=== PATIENT | female | born 1935 | race Caucasian/White ===

== ENCOUNTER 2016-03-09 00:03 | Emergency (ER) | payer MEDICARE, OTHER ==
[~2016-03-09 00:03] MED LIST: ALPR.25T PO; ASCO100089 PO; ASP81TEC PO; ATEN25TA7 PO; CALTRATE 600 +1 EACH PO; CHOL500011 PO; CITA10TA14 PO; CLOP75TA14 PO; DONE10TA5 PO; FISH1CAP15 PO; IMD30 PO; LSNP5T1 PO; MULT-64 PO; NITR0.4T SL; PRV40T PO
[2016-03-09 00:11] VITALS: BP 187/63; PULSE 59; RESP 16; O2SAT 98
--- NOTE | 2016-03-09 00:18 | ED.REPORT ---
HPI-Trauma Minor / Fall Date of Service Mar 09, 2016 ED Provider: Nuris Martinez M.D. Pt is an 80 y.o. female with a hx of dementia who presents to the ED via EMS with left wrist pain and deformity onset prior to arrival. Pt was found by staff at her [facility] after a ground level fall. She reports associated pelvic tenderness and denies chest, back, and abdominal pain. Pt is a poor historian due to her dementia. Nursing Notes Stated Complaint: GLF Chief Complaint: Multiple Trauma/Fall Nursing Notes Reviewed: Yes Allergies: Coded Allergies: memantine (Verified Allergy, Unknown, agitation, 03/09/16) Scheduled Ascorbic Acid-Expunged Drug, Do Not Renew! (Vitamin C-Expunged Drug, Do Not Renew!) 1,000 Mg Tab.chew 1,000 MG PO DAILY Aspirin-Expunged Drug, Do Not Renew! (Aspirin EC-Expunged Drug, Do Not Renew!) 81 Mg Tablet 81 MG PO DAILY Atenolol-Expunged Drug, Do Not Renew! (Atenolol-Expunged Drug, Do Not Renew!) 25 Mg Tablet 25 MG PO AM Calcium Carbonate/Vitamin D3 (Caltrate 600 + D Chewable Tab) 1 Each Tab.chew 1 EACH PO d Cholecalciferol-Expunged Drug, Do Not Renew! (Vitamin D3-Expunged Drug, Do Not Renew!) 5,000 Unit Tablet 5,000 UNIT PO 1/2 tab daily Citalopram-Expunged Drug, Do Not Renew! (Citalopram-Expunged Drug, Do Not Renew! ) 10 Mg Tablet 10 MG PO DAILY Clopidogrel-Expunged Drug, Do Not Renew! (Plavix-Expunged Drug, Do Not Renew!) 75 Mg Tablet 75 MG PO DAILY Donepezil-Expunged Drug, Do Not Renew! (Donepezil-Expunged Drug, Do Not Renew!) 10 Mg Tablet 10 MG PO DAILY Fish Oil/Dha/Epa-Expunged Drug, Do Not Renew! (Fish Oil 1,200 Mg-Expunged Drug, Do Not Renew) 1 Each Capsule 1 EACH PO DAILY Isosorbide [place]-Expunged Drug, Do Not Renew! (LUBFY-OK-Obxnknfq Drug, Do Not Renew!) 30 Mg Tber 30 MG PO AM Lisinopril-Expunged Drug, Do Not Renew! (Lisinopril-Expunged Drug, Do Not Renew! ) 5 Mg Tablet 5 MG PO DAILY Multivitamins-Expunged Drug, Do Not Renew! (Multivitamins-Expunged Drug, Do Not Renew!) 1 Each Tab.chew 1 EACH PO DAILY Nitroglycerin-Expunged Drug, Do Not Renew! (Nitroglycerin SL-Expunged Drug, Do Not Renew!) 0.4 Mg Tab.subl 0.4 MG SL PRN Pravastatin-Expunged Drug, Do Not Renew! (Pravachol-Expunged Drug, Do Not Renew! ) 40 Mg Tablet 40 MG PO DAILY Scheduled PRN Docusate Sodium (Colace) 100 Mg Capsule 100 MG PO BID PRN PRN For Constipation Hydrocodone-Acetaminophen 5-325 mg (Hydrocodone-Acetaminophen 5-325 mg) 1 Each Tablet 1 TABLET PO Q6H PRN PRN For Pain Miscellaneous Medications Alprazolam-Expunged Drug, Do Not Renew! (Alprazolam-Expunged Drug, Do Not Renew! ) 0.25 Mg Tablet 0.25 MG PO General Time Seen by MD: 00:18 Chief Complaint Extremity pain (Left wrist) Hx Obtained From: Patient, EMS Unable to Obtain Hx: Patient condition, Mental status (Dementia) Arrived By: Ambulance Onset Occurred: Just prior to arrival Symptom Duration: Waxes and wanes Caused by: Fall on ground Context: Occurred at: Home injury Location: Wrist left Quality: Painful Severity: Maximum: Severe Past Medical History Past Medical History Dementia CVA HTN Depression Anxiety Past Surgical History None reported Ambulatory Status Independent Review of Systems Pelvis tender Unable to Obtain ROS Patient condition, Mental status (Dementia) Musculoskeletal: Reports: Joint pain (Wrist left), Joint swelling (Wrist left) , Denies: Back pain Complete sys rev & neg: except as marked. Cardiovascular: Denies: Chest pain GI: Denies: Abdominal pain Physical Exam Initial Vital Signs Vital Signs (First) Date Time Temp Pulse Resp B/P Pulse Ox O2 Delivery O2 Flow Rate FiO2 03/09/16 00:11 36.7 59 16 187/63 98 Room Air Initial VS: Reviewed, Vital signs abnormal Head / Eyes: Atraumatic, Normocephalic Respiratory: Breath sounds normal, Clear to auscultation, No respiratory distress Cardiovascular: Regular rate & rhythm, Heart sounds normal, Intact distal pulses Abdomen / GI: Soft, Non-tender, No distention Extremities: Vascular intact, Neuro intact Skin: Warm, Dry, No cyanosis Neurologic: Alert Psychiatric: Mood/affect normal General/Constitutional: Awake, No acute distress, Well appearing, Well developed, Well hydrated, Well nourished Neck: Atraumatic Back: Atraumatic, Inspection NL, Non-tender, No midline vertebral tend Wrist / Hand: Neurologic intact, Vascular intact Left Wrist: Positive: Deformity present..., Swelling present..., Tenderness present... Pt able to move fingers of left hand. Lower Extremity / Pelvis / MS: Neurologic intact, Vascular intact Pelvis tender Interpretation & Diagnostics Lab Results Interpretation Result Diagram: 03/09/16 0205 03/09/16 0205 Test 03/09/16 02:05 White Blood Count 12.9th/mm3 (3.8-10.1) Red Blood Count 4.73mil/mm3 (3.90-5.20) Hemoglobin 13.6g/dL (12.0-15.6) Hematocrit 40.8% (35.0-46.0) Mean Corpuscular Volume 86.3fL (81-100) Mean Corpuscular Hemoglobin 28.8pg (27.0-35.0) Mean Corpuscular Hemoglobin Concent 33.3% (32.0-37.0) Red Cell Distribution Width 13.3% (12.3-15.4) Platelet Count 202bil/L (150-400) Neutrophils (%) (Auto) 87.0% (40-74) Lymphocytes (%) (Auto) 7.9% (14-46) Monocytes (%) (Auto) 4.4% (4-12) Eosinophils (%) (Auto) 0.1% (0-5) Basophils (%) (Auto) 0.1% (0-3) Sodium Level 137mEq/L (134-144) Potassium Level 4.2mEq/L (3.5-5.2) Chloride Level 99mEq/L (97-108) Carbon Dioxide Level 23mmol/L (18-29) Blood Urea Nitrogen 15mg/dL (8-27) Creatinine 0.73mg/dL (0.57-1.00) Estimat Glomerular Filtration Rate 110mL/min (>59) Glucose Level 163mg/dL (60-99) Calcium Level 9.4mg/dL (8.5-10.1) Magnesium Level 2.1mg/dL (1.6-2.6) Hold Marrero Top Tube Received (Received) X-Ray Interpretation Xray Interpretation: IMPRESSION: Distal radial and ulnar fracture, anteriorly displaced. X-Ray Ordered: Wrist left Interpretation / Wet Read by: Wet read ED physician Interpretation: Abnormal exam, Fracture-dislocation Xray Interpretation: IMPRESSION: No fracture visualized X-Ray Ordered: Pelvis Interpretation / Wet Read by: Wet read ED physician Interpretation: Normal exam Procedures Hematoma block attempted at 0120 5cc of Bupivacaine into left wrist, pt was unable to tolerate procedure so it was stopped. Proced Mod Sedation/Analgesia Time: 02:36 Procedure Performed by: ED physician Consent / Setup: Informed consent provided, Consent from patient, Time-out performed, Hand hygiene observed, Stand sterile technique, Position supine Indication: Fracture reduction Preparation: telemetry monitor applied, Pulse oximeter applied, Constant attendance, IV access established, Eval last meal time, Supplemental oxygen, Procedure explained, Suction available, End tidal CO2 mon applied VS Prior to Procedure: All vital signs normal Mallampati: Class & Anatomy: 1 tonsils/uvula/s palate Airway Exam: Normal facial anatomy, Normal neck anatomy, Normal anatomy CVS/Resp Exam: Normal breath sounds, Normal heart sounds Neuro Exam: Alert, No acute distress, Responsive Sedation: Sedation: Propofol (40) ASA Classification: 1 normal healthy patient Response During Procedure: Handled secretions adeq, Maintained airway well, Oxygenation stable, Sedation appropriate, Vital signs stable Complications During/After: None Mental Status After Procedure: At patient's baseline Post-Procedure: Pt rtn pre-proc baseline, Vital signs normal Attestation: I performed sedation Re-Eval/Medical Decision Med Decision/Clinical Course This patient presents with a fall and what appears to be an isolated left wrist injury. She has an obvious deformity, her x-ray confirms a distal radius and ulna fracture was displaced. The patient is comfort measures only and is unable to give consent. I did attempt to contact her son but was unsuccessful. In the spirit of keeping her comfortable and felt as medically necessary to reduce her fracture. Spoke with Dr. Aviles who came in for the reduction and I did the conscious sedation. After reducing his recommendation is that the patient show up early next week preferably on Monday with her family to discuss options. The patient does not appear to have any other injuries she was able to shake her head yes and no for her review of systems. On examination she did appear to have some pelvic discomfort consent was obtained and is negative for fracture. Source of Hx: Old records Consultation : Referral / Consult Name: Jose Aviles DO Call Returned at: 01:36 Note: Discussed pt condition, will see pt in ED to evaluate. Counseled Regarding: Diagnosis, Lab results, Need for follow-up, When/why to return to ED Discharge & Departure Impression: Primary Impression: Radius and ulna distal fracture Encounter type: initial encounter Fracture type: closed Laterality: left Qualified Code: S52.502A - Unspecified fracture of the lower end of left radius , initial encounter for closed fracture Disposition: Home Discharge Condition All VS Reviewed: Yes Condition: Stable Patient Instructions: Splint Care (ED), Wrist Fracture in Adults (ED) Additional Instructions: You fractured your left distal radius and ulna. Start with regular Tylenol, no more than 4g in 1 day, for the pain and use narcotics only as needed. Use Colace with the narcotics. You will need to call Dr. Aviles, orthopedics, tomorrow to schedule an appointment for Monday to discuss options. Stop taking Plavix for the next 4 days. Seek care if you experience numbness or tingling in your left hand, increased pain, or any new or worsening symptoms. Referrals: Emmanuel Geronimo MD (PCP) Jose Aviles DO 5 to 6 Days Scribe Attestation Portions of this note were transcribed by Doris Jacobo. I, Dr. Martinez personally performed the history, physical exam and medical decision-making; I reviewed and confirmed the accuracy of the information in the transcribed note. Signed by: Sherly Nolan, 03/09/2016 and 0301. copies to: Emmanuel Geronimo MD; Jose Aviles Jena M MD Mar 09, 2016 00:18 DORIS JACOBO Mar 09, 2016 00:39
[2016-03-09] MEDS ORDERED: HYDROmorphone 0.5 mg/0.5 mL iSecure Syringe IM ONE (00:30)
[2016-03-09 00:52] VITALS: BP 165/65; PULSE 61; O2SAT 95
[2016-03-09] MEDS ORDERED: HYDROcodone-APAP 5-325 mg Tablet PO ONE (01:00)
[2016-03-09] MEDS ORDERED: Bupivacaine-MPF 0.5% 30 mL Inj ONE (01:29)
[2016-03-09 02:16] LABS: BASOPHILS % (AUTO) 0.1 % (0-3); EOSINOPHILS % (AUTO) 0.1 % (0-5); MONOCYTES % (AUTO) 4.4 % (4-12); Mean Corpuscular Hemoglobin 28.8 pg (27.0-35.0); Mean Corpuscular Volume 86.3 fL (81-100); Platelet Count 202 bil/L (150-400)
[2016-03-09] MEDS ORDERED: 0.9% Sodium Chloride 1,000 ML ONE (02:19)
[2016-03-09] MEDS ORDERED: Propofol 10 mg/mL 20 mL Inj IVPUSH ONE (02:30)
[2016-03-09 02:39] LABS: Magnesium 2.1 mg/dL (1.6-2.6)
[2016-03-09] MEDS ORDERED: HYDR-4003 PO (02:59)
[2016-03-09] MEDS ORDERED: DOCU-41 PO (02:59)
[2016-03-09 03:14] VITALS: BP 159/74; PULSE 69; RESP 14; O2SAT 98
--- NOTE | 2016-03-09 03:31 | CONS ---
[address] [address] CONSULTATION REPORT PATIENT: PRATEEK YUSUF : 1935 MR#: [id number] ADMIT: 03/09/2016 JOB ID: [id number] DATE OF SERVICE: 03/09/2016 CHIEF COMPLAINT: Left wrist injury and deformity. HISTORY OF PRESENT ILLNESS: The patient is a 70-year-old female with severe dementia who lives at [facility] and presumably fell sustaining a left distal radius fracture. She did not have any family or staff members present to witness the fall. She is nonverbal with communication. PAST MEDICAL HISTORY: Significant for Alzheimer's dementia, depression, carotid artery stenosis 70%, hypertension, hyperlipidemia, syncope, and anxiety disorder. PAST SURGICAL HISTORY: Not known. SOCIAL HISTORY: Not known. MEDICATIONS: Include: 1. Plavix 75 mg daily. 2. Citalopram 10 mg daily. 3. Donepezil 10 mg 2 tabs daily. PHYSICAL EXAMINATION: She is alert and cooperative in some distress secondary to her left wrist which has been splinted. She has an obvious dinner fork type deformity. She has a small abrasion over her wrist and some ecchymosis and bruising. The abrasion is on the volar aspect. It does not appear to communicate with the fracture. There is no active bleeding present. She is able to move her fingers, although full neurovascular exam is limited due to patient noncompliance. Her capillary refill is less than 3 seconds. Radial pulse +2. IMAGING: X-rays demonstrate a left distal radius and ulnar fracture with 100% dorsal displacement. ASSESSMENT: Left displaced distal radius and ulnar fractures. PLAN: Discussed treatment options with the patient to the extent that I could as well as the other emergency department physician. We felt it was best that the patient be sedated with conscious sedation and then have a closed reduction performed and then be placed into a sugar-tong splint. We will have her follow up in 1 week for recheck with x-rays in the splint and probable cast treatment, although I can discuss operative treatment with the family members at that time. PROCEDURE: Under conscious sedation a firm, but gentle manipulation was performed extenuating the fracture and then reducing it. The fracture was held by an hospital medical assistant while I applied a well-padded and appropriately molded sugar-tong fiberglass splint. The patient tolerated the procedure well. I took fluoroscopic images which demonstrated satisfactory alignment, and reduction of the fracture. We will have the patient follow back up next Monday with myself with the splint to be removed by myself. I also recommend that she hold the Plavix for 48 hours to prevent undue bleeding at the fracture site.
--- NOTE | 2016-03-09 08:01 | DRSVH ---
PROCEDURE: X-RAY LEFT WRIST COMPLETE, MINIMUM THREE VIEWS ([id number]) INDICATIONS: 80 year-old female with left wrist deformity after fall. TECHNIQUE: 3 views of the wrist were acquired. COMPARISON: None. FINDINGS: Bones: Comminuted fractures involve the distal radial and ulnar metaphyses, with significant dorsal d isplacement and angulation of the distal fracture components. An additional minimally displaced fract ure involves the ulnar styloid tip. Carpal bones remain normally aligned. No suspicious bony lesions. Scaphoid view: Scaphoid appears intact. Soft tissues: No suspicious soft tissue calcifications. IMPRESSION: 1. Significantly displaced and dorsally angulated comminuted fractures of the distal radial and ulnar metaphyses. 2. Additional minimally displaced ulnar styloid tip avulsion fracture. Dictated by: Rich Virgen M.D. on 03/09/2016 at 7:59 Approved by: Rich Virgen M.D. on 03/09/2016 at 7:59
--- NOTE | 2016-03-09 08:02 | DRSVH ---
PROCEDURE: X-RAY PELVIS, ONE OR TWO VIEWS ([id number]) INDICATIONS: 80 year-old female status post fall. TECHNIQUE: One view(s) of the pelvis acquired. COMPARISON: None. FINDINGS: Bones: No fractures or dislocations. No suspicious bony lesions. There is lower lumbar spine facet joint degeneration. Soft tissues: Visualized bowel gas pattern is normal. No suspicious soft tissue calcifications. IMPRESSION: No acute bony injuries of the pelvic ring. Dictated by: Rich Virgen M.D. on 03/09/2016 at 8:00 Approved by: Rich Virgen M.D. on 03/09/2016 at 8:00
[2016-03-09] MEDS ORDERED: ARNI120T TP (23:33)
[2016-03-09] MEDS ORDERED: CALC-1003 PO (23:33)
[2016-03-09] MEDS ORDERED: CRAN1TAB5 PO (23:33)
[2016-03-09] MEDS ORDERED: ASCO1TAB12 PO (23:33)
[2016-03-09] MEDS ORDERED: MELA3TAB54 PO (23:33)
[2016-03-09] MEDS ORDERED: MAGN400O4 PO (23:33)
[2016-03-09] MEDS ORDERED: CHOL10008 PO (23:33)
[2016-03-09] MEDS ORDERED: BISA10SU61 RC (23:33)
[2016-03-09] MEDS ORDERED: LACT460C PO (23:33)
[2016-03-09] MEDS ORDERED: CITA10TA9 PO (23:43)
[2016-03-09] MEDS ORDERED: NITR0.4T SL (23:43)
[2016-03-09] MEDS ORDERED: DONE10TA42 PO (23:43)
[2016-03-09] MEDS ORDERED: CLOP75TA28 PO (23:43)
[2016-03-09] MEDS ORDERED: ATEN25TA PO (23:43)
[2016-03-09] MEDS ORDERED: ASPI81TA3 PO (23:43)
[2016-03-09] MEDS ORDERED: MULT1CAP33 PO (23:43)
== END 2016-03-09 03:26 | disposition home or self-care (01) ==
LOC: EDUNIT# 00:03 → EDBD 00:03 → SED 00:03
DX: S52.592A Other fractures of lower end of left radius, initial encounter for closed fracture (principal); S52.692A Other fracture of lower end of left ulna, initial encounter for closed fracture; R10.2 Pelvic and perineal pain; W18.30XA Fall on same level, unspecified, initial encounter; Y93.89 Activity, other specified; Y92.128 Other place in nursing home as the place of occurrence of the external cause; Y99.8 Other external cause status; I10 Essential (primary) hypertension; Z86.73 Personal history of transient ischemic attack (TIA), and cerebral infarction without residual deficits; Z79.82 Long term (current) use of aspirin; Z88.8 Allergy status to other drugs, medicaments and biological substances

== ENCOUNTER 2016-03-09 20:59 | Observation (INO) | payer MEDICARE, OTHER ==
[~2016-03-09] VITALS: Ht 157.5 cm; Wt 65.1 kg
[~2016-03-09 20:59] MED LIST changes: +DOCU-41 PO; +HYDR-4003 PO
[2016-03-09 21:35] VITALS: BP 171/76; PULSE 60; RESP 18; O2SAT 95
[2016-03-09] MEDS ORDERED: Alum-Mag Hydrox-Simeth 30 mL Suspension PO PRN (22:35)
[2016-03-09] MEDS ORDERED: Ondansetron 2 mg/mL 2 mL Inj IVPUSH PRN (22:35)
[2016-03-09] MEDS ORDERED: HYDROcodone-APAP 5-325 mg Tablet PO PRN (22:35)
[2016-03-09] MEDS ORDERED: Polyethylene Glycol (PEG) 17 Gm Powder PO PRN (22:35)
[2016-03-09] MEDS ORDERED: BISA10SU61 RC (23:33)
[2016-03-09] MEDS ORDERED: MELA3TAB54 PO (23:33)
[2016-03-09] MEDS ORDERED: MAGN400O4 PO (23:33)
[2016-03-09] MEDS ORDERED: CRAN1TAB5 PO (23:33)
[2016-03-09] MEDS ORDERED: ARNI120T TP (23:33)
[2016-03-09] MEDS ORDERED: LACT460C PO (23:33)
[2016-03-09] MEDS ORDERED: CALC-1003 PO (23:33)
[2016-03-09] MEDS ORDERED: CHOL10008 PO (23:33)
[2016-03-09] MEDS ORDERED: ASCO1TAB12 PO (23:33)
[2016-03-09] MEDS ORDERED: NITR0.4T SL (23:43)
[2016-03-09] MEDS ORDERED: CITA10TA9 PO (23:43)
[2016-03-09] MEDS ORDERED: MULT1CAP33 PO (23:43)
[2016-03-09] MEDS ORDERED: DONE10TA42 PO (23:43)
[2016-03-09] MEDS ORDERED: CLOP75TA28 PO (23:43)
[2016-03-09] MEDS ORDERED: ATEN25TA PO (23:43)
[2016-03-09] MEDS ORDERED: ASPI81TA3 PO (23:43)
[2016-03-10] MEDS ORDERED: Magnesium Hydroxide 355 mL Oral Suspension PO PRN (00:15)
[2016-03-10 00:55] VITALS: BP 185/73; PULSE 63; RESP 18; O2SAT 95
[2016-03-10] MEDS ORDERED: hydrALAZINE 20 mg/mL Inj IV ONE (02:15)
[2016-03-10 03:32] LABS: BASOPHILS % (AUTO) 0.1 % (0-3); MONOCYTES % (AUTO) 10.5 % (4-12); Mean Corpuscular Hemoglobin 28.8 pg (27.0-35.0); Mean Corpuscular Volume 87.1 fL (81-100); NEUTROPHILS % (AUTO) 57.1 % (40-74); Platelet Count 193 bil/L (150-400)
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
[2016-03-10 05:20] VITALS: BP 147/68; PULSE 74; RESP 18; O2SAT 94
--- NOTE | 2016-03-10 07:37 | NUR ---
Admission note Pt arrived from Urgent care directly to [facility] # [id number] approx at 2114 accompanied by her son. Pt is confused due to advanced dementia r/t Alzheimers disease. Admission assessment and screening complicated with help from her son. Pt was hypertensive. Dr. Rubalcava notified. Received order to establish IV access on foot due to limitation on bilateral arms. Both arms in splint due fx. No overt complications noted.
[2016-03-10 15:01] VITALS: BP 139/81; PULSE 66; RESP 19; O2SAT 93
--- NOTE | 2016-03-10 15:25 | PCM.CONORT ---
Subjective Surgeon Admitting Provider:Kip Varela MD Attending Provider:Kip Varela MD Primary Care Physician:Emmanuel Geronimo MD Other Provider: Reason for Consultation: Right wrist pain Allergy Allergies: Coded Allergies: memantine (Verified Allergy, Unknown, agitation, 03/09/16) Medications Arnica (Arnica) 120 Ml Tincture 120 ML TP DAILY PRN PRN Bruise left ear ( Reported) Ascorbate Calcium/Bioflavonoid (Dominique-C 500 mg Tablet) 1 Each Tablet 1 EACH PO DAILY (Reported) Last Taken: Unknown Dose on 03/09/16 0800 Aspirin Chew (Aspirin Chew) 81 Mg Chew 81 MG PO DAILY (Reported) Last Taken: Unknown Dose on 03/09/16 0800 Atenolol (Atenolol) 25 Mg Tablet 25 MG PO (Reported) Last Taken: Unknown Dose on 03/09/16 0800 Bisacodyl (Dulcolax Rectal) 10 Mg Supp.rect 10 MG RC DAILY PRN PRN For Constipation (Reported) Calcium Citrate/Vitamin D3 (Calcium Citrate +Vit D3 Tablet) 200 Mg Calcium-250 Unit Tablet 1 EACH PO DAILY (Reported) Last Taken: Unknown Dose on 03/09/16 1200 Cholecalciferol (Vitamin D3) ( Vitamin D3) 1,000 Unit Tab.chew 1,000 UNIT PO DAILY (Reported) Last Taken: Unknown Dose on 03/09/16 1200 Citalopram (Citalopram) 10 Mg Tablet 10 MG PO DAILY (Reported) Last Taken: Unknown Dose on 03/09/16 0800 Clopidogrel (Clopidogrel) 75 Mg Tablet 75 MG PO DAILY (Reported) Last Taken: Unknown Dose on 03/09/16 0800 Cranberry Conc/C/Bacill Coag ( Cranberry Tablet) 1 Each Tablet 1 EACH PO DAILY (Reported) Last Taken: Unknown Dose on 03/09/16 0800 Docusate Sodium (Colace) 100 Mg Capsule 100 MG PO BID PRN PRN For Constipation Prescribed by: DANIKA CAMPBELL MD Donepezil (Donepezil) 10 Mg Tablet 2 TAB PO HS (Reported) Hydrocodone-Acetaminophen 5-325 mg (Hydrocodone-Acetaminophen 5-325 mg) 1 Each Tablet 1 TABLET PO Q6H PRN PRN For Pain Prescribed by: DANIKA CAMPBELL MD Lactobacillus Acidophilus (Florajen) 460 Mg Capsule 460 MG PO BID (Reported) Last Taken: Unknown Dose on 03/09/16 1900 Magnesium Hydroxide (Milk of Magnesia) 400 Mg/5 Ml Oral.susp 30 ML PO PRN For Constipation (Reported) Melatonin (Melatin) 3 Mg Tablet 3 MG PO HS (Reported) Last Taken: Unknown Dose on 03/08/16 2100 Multivitamin (Multivitamins) 1 Each Capsule 1 EACH PO DAILY (Reported) Last Taken: Unknown Dose on 03/09/16 0800 Nitroglycerin SL (Nitrostat) 0.4 Mg Tab.subl 0.4 MG SL Q5MIN PRN PRN For Chest Pain (Reported) Discontinued Medications Alprazolam-Expunged Drug, Do Not Renew! (Alprazolam-Expunged Drug, Do Not Renew! ) 0.25 Mg Tablet 0.25 MG PO (Reported) Ascorbic Acid-Expunged Drug, Do Not Renew! (Vitamin C-Expunged Drug, Do Not Renew!) 1,000 Mg Tab.chew 1,000 MG PO DAILY (Reported) Aspirin-Expunged Drug, Do Not Renew! (Aspirin EC-Expunged Drug, Do Not Renew!) 81 Mg Tablet 81 MG PO DAILY (Reported) Last Taken: Unknown Dose on 03/09/16 0800 Atenolol-Expunged Drug, Do Not Renew ! (Atenolol-Expunged Drug, Do Not Renew!) 25 Mg Tablet 25 MG PO AM (Reported) Last Taken: Unknown Dose on 03/09/16 0800 Calcium Carbonate/Vitamin D3 ( Caltrate 600 + D Chewable Tab) 1 Each Tab.chew 1 EACH PO d (Reported) Cholecalciferol-Expunged Drug, Do Not Renew! (Vitamin D3-Expunged Drug, Do Not Renew!) 5,000 Unit Tablet 5,000 UNIT PO 1/2 tab daily (Reported) Citalopram-Expunged Drug, Do Not Renew! (Citalopram-Expunged Drug, Do Not Renew! ) 10 Mg Tablet 10 MG PO DAILY (Reported) Last Taken: Unknown Dose on 03/09/16 0800 Clopidogrel-Expunged Drug, Do Not Renew! (Plavix-Expunged Drug, Do Not Renew!) 75 Mg Tablet 75 MG PO DAILY ( Reported) Last Taken: Unknown Dose on 03/09/16 0800 Donepezil-Expunged Drug, Do Not Renew! (Donepezil-Expunged Drug, Do Not Renew!) 10 Mg Tablet 2 TAB PO HS ( Reported) Last Taken: Unknown Dose on 03/09/16 1900 Fish Oil/Dha/Epa-Expunged Drug, Do Not Renew! (Fish Oil 1,200 Mg-Expunged Drug, Do Not Renew) 1 Each Capsule 1 EACH PO DAILY (Reported) Isosorbide [place]-Expunged Drug, Do Not Renew! (RWLJK-LX-Sbprxyuf Drug, Do Not Renew!) 30 Mg Tber 30 MG PO AM (Reported) Lisinopril-Expunged Drug, Do Not Renew! (Lisinopril-Expunged Drug, Do Not Renew! ) 5 Mg Tablet 5 MG PO DAILY (Reported) Multivitamins-Expunged Drug, Do Not Renew! (Multivitamins-Expunged Drug, Do Not Renew!) 1 Each Tab.chew 1 EACH PO DAILY (Reported) Last Taken: Unknown Dose on 03/09/16 0800 Nitroglycerin-Expunged Drug, Do Not Renew! (Nitroglycerin SL-Expunged Drug, Do Not Renew!) 0.4 Mg Tab.subl 0.4 MG SL PRN (Reported) Pravastatin-Expunged Drug, Do Not Renew! (Pravachol-Expunged Drug, Do Not Renew! ) 40 Mg Tablet 40 MG PO DAILY (Reported) History History of ENT Problems?: Yes HEENT History: Positive for:: Cataracts Denies:: Abnormal Airway Difficult Intubation Dysphagia Glaucoma Hearing Problem Sinus Problem Hx of Heart Problems?: Yes Cardiovascular History: Positive for:: Chest Pain Hypertension Denies:: Cardiac Surgery Congestive Heart Failure Edema Heart Murmur Irregular Heartbeat Pacemaker Thrombophlebitis Hx of Respiratory Problem?: Yes Respiratory History: Positive for:: Dyspnea Denies:: Asthma COPD Chest Surgery Hemoptysis Pneumonia Tuberculosis Hx Neurologic Problems?: Yes Neurological History: Positive for:: Alzheimer's Disease Dementia Dizziness Denies:: CVA Headaches Parkinson's Disease Seizures Hx of GI Problems?: Yes Gastrointestinal History: Positive for:: Gastroesphageal Reflux Heartburn Rectal Bleeding Denies:: Diverticulitis Gastrointestinal Bleeding Hepatitis Hiatal Hernia Hx of Problems?: No Female Hx: Denies:: Endometriosis Pelvic Inflammatory Problems with Breasts? Hx Musculoskeletal Problems?: No Musculoskeletal History: Positive for:: Musculoskeletal Trauma (FALLS WITH ARM FX) Denies:: Back Injury Joint Replacement Other History/Comment Dahlia Hendrix is an 80-year-old right hand dominant patient who presents to the ER of the right hand with ongoing symptoms. The patient states that their pain is a sharp in nature and mild/moderate in severity localized to the distal radial aspect of the hand without radiation. This has been progressing over the past day after she slipped and fell after breaking her left wrist yesterday. She was seen with Dr. Aviles who reduced her wrist and placed her in a splint. She subsequently slipped and fell and hurt her right wrist earlier today. Moreover, the pain is exacerbated by activities, especially with movement. Rest seems to improve the symptoms. Previous treatment has included left wrist fracture with manipulation and splint. There is no reports numbness, tingling, or weakness to the affected distal upper extremity. The patient denies any fever, chills, nausea, vomiting, chest pain, shortness of breath, or calf tenderness. Work/hobbies/sports include: History of dementia among multiple other comorbidities Hx of Psycho/Social Problems?: No Psycho Social History: Positive for:: Anxiety Hx Depression Denies:: Bipolar Disorder Suicide Attempt Hx Surgeries?: No Hx Any Other Health Problems?: No Other History: Positive for:: Hospitalization Denies:: Cancer Thyroid Disease History Blood Transfusions: Positive for:: Accept Blood Products? Denies:: Blood Transfusions Hx Diabetes: No Occupation: Retired Hx Alcohol Use: NoHx Substance Use: NoHave You Smoked inLast 12 mo: No Objective Exam Vital Signs & I/O Vital Sign- Last 8 Hours Date Time Temp Pulse Resp B/P Pulse Ox O2 Delivery O2 Flow Rate FiO2 03/10/16 15:01 37.1 66 19 139/81 93 Room Air Intake and Output- Last 8 Hour 03/10/16 Cumulative From/Thru 07:00 03/09/16 21:35 - 03/10/16 06:06 Intake Total 0 ml 0 ml Balance 0 ml 0 ml Intake Oral 0 ml 0 ml # Voids 1 1 Lab & Micro Results Laboratory Tests Test 03/10/16 02:50 White Blood Count 8.0th/mm3 (3.8-10.1) Red Blood Count 4.10mil/mm3 (3.90-5.20) Hemoglobin 11.8g/dL (12.0-15.6) Hematocrit 35.7% (35.0-46.0) Mean Corpuscular Volume 87.1fL (81-100) Mean Corpuscular Hemoglobin 28.8pg (27.0-35.0) Mean Corpuscular Hemoglobin Concent 33.1% (32.0-37.0) Red Cell Distribution Width 13.3% (12.3-15.4) Platelet Count 193bil/L (150-400) Neutrophils (%) (Auto) 57.1% (40-74) Lymphocytes (%) (Auto) 29.9% (14-46) Monocytes (%) (Auto) 10.5% (4-12) Eosinophils (%) (Auto) 2.0% (0-5) Basophils (%) (Auto) 0.1% (0-3) Hold Purple Top Tube Received (Received) Hold Blue Top Tube Received (Received) Sodium Level 139mEq/L (134-144) Potassium Level 3.5mEq/L (3.5-5.2) Chloride Level 102mEq/L (97-108) Carbon Dioxide Level 24mmol/L (18-29) Blood Urea Nitrogen 16mg/dL (8-27) Creatinine 0.64mg/dL (0.57-1.00) Estimat Glomerular Filtration Rate 128mL/min (>59) Glucose Level 120mg/dL (60-99) Calcium Level 8.8mg/dL (8.5-10.1) Hold [place] Top Tube Received (Received) Result Diagram: 03/10/1624903/10/16 025 Review of Systems: Constitutional: Negative, except as otherwise mentioned in the history above. Ophthalmologic: Negative, except as otherwise mentioned in the history above. Cardiovascular: Negative, except as otherwise mentioned in the history above. Respiratory: Negative, except as otherwise mentioned in the history above. Gastrointestinal: Negative, except as otherwise mentioned in the history above. Genitourinary: Negative, except as otherwise mentioned in the history above. Musculoskeletal: Negative, except as otherwise mentioned in the history above. Neurological: Negative, except as otherwise mentioned in the history above. Psychiatric: Negative, except as otherwise mentioned in the history above. Hematologic/Lymphatic: Negative, except as otherwise mentioned in the history above. Allergic/Immunologic: Negative, except as otherwise mentioned in the history above. H&P Surgical Exam Exam Musculoskeletal: CONST: WD,WN, NAD, A+OX2- unable to verbalize but responds to commands and demonstrates comprehension OCULAR: EOMI, no conjunctivitis/icterus ENT: no deformities, scars or lesions CARDIAC: Pulse is regular. No cyanosis,clubbing,edema RESP: regular,unlabored MSK: normal light touch median, ulnar, radial, lateral antebrachial, axillary nerve distribution. Intact AIN, PIN, u, r, ax motor. C5-T1 intact, 2+ r/u pulse Right hand - scars, -discoloration/temp, ++swelling, - atrophy or asymmetry, - cascade sign, no global ligamentous laxity, TTP distal radius ROM [R/L] Ext-flex Resisted Strength/Pain deferred + painful arc, + crepitus Signs grind:- Freddy's sign: - Zay's test: - Grover's test: Gamekeeper's test: - Tinel's test: - Phalen's test: - Froment's test: - Wartenberg's: - Additional Information X-rays of the right wrist demonstrate minimally displaced intra-articular comminuted distal radius fracture with impaction H&P Preop Plan Impression Bilateral distal radius fractures Problems: Risks & Benefits * We have reviewed the risks and benefits as well as the alternatives to surgery. All questions were answered to the patient's satisfaction and a counseling note to that effect. The patient has provided informed consent. * I have counseled the patient regarding the deleterious effects that smoking during the perioperative period can have upon wound healing, infection rates, and the overall rate of complications. Plan Nonweightbearing bilateral upper extremities Oral pain meds as needed Continue splint immobilization Patient has appointment with Dr. Aviles on Monday Continue medical management per primary Please keep the affected extremity elevated when possible. You may use ice and/or heat as needed for comfort. All questions and concerns were addressed. Please feel free to call with any further questions, comments, and/or concerns. Deon Schuler MD Mar 10, 2016 15:25
--- NOTE | 2016-03-10 17:09 | NUR ---
Social Work: Attempted Initial Assessment D/A: Per EMR review, pt is an 80 year old female admitted for bilateral wrist fractures. Pt is Medicare with [facility]. PCP is Emmanuel Geronimo MD. NOK Is Brain Ana, Son. Advanced directives not on file but RN notes suggest that pt's son has copy and will bring it in. Readmit score not entered at this time. DATA ANALYST attempted to complete IA with pt's son. DATA ANALYST not able to contact him via telephone or in person. Pt resides at [facility] in the memory care unit. Pt with advanced dementia. DATA ANALYST spoke with pt's RN at [facility]. Pt requires total assistance with everything except for feeding. Pt uses a wheelchair at baseline. Oyster Bed Worker, Marya, will need to do bedside assessment if pt is to return. At this time, pt remains in observation status as she does not require surgery to repair fractures. Pt has had repeated falls at [facility]. DATA ANALYST to request PT evaluation from tomorrow at AM rounds. P: Anticipate pt to either return to [facility] or pay privately at skilled rehab for continued strengthening and mobility improvement; DATA ANALYST to follow up with pt's son tomorrow. SILVANO Carroll
--- NOTE | 2016-03-10 17:43 | NUR ---
Nutrition Pt was NPO this morning, later given orders for Heart Healthy diet. Pt unable to use her hands D/T bilat arm splints. Not able to palpate pulses but pt has brisk cap refill. Pt being fed by COSTUME SHOP MANAGER during meal time, pt with good appetite. Pt's son (Kieran) at bedside, able to review plan of care with him. Pt calm and coop, frequent rounding in place.
[2016-03-10 18:06] VITALS: BP 124/87; PULSE 72; RESP 20; O2SAT 96
--- NOTE | 2016-03-10 20:26 | PCM.PNMED ---
Subjective Date of Service Mar 10, 2016 Subjective Patient is very pleasantly confused, denies any current pain. She remains in splints bilaterally. Exam Vital Signs Vital Sign - Last Date Time Temp Pulse Resp B/P Pulse Ox O2 Delivery O2 Flow Rate FiO2 03/10/16 18:06 36.9 72 20 124/87 96 Room Air Intake and Output 03/09/16 03/09/16 03/10/16 Cumulative From/Thru 15:00 23:00 07:00 03/09/16 21:35 - 03/10/16 06:06 Intake Total 0 ml 0 ml Balance 0 ml 0 ml Intake Oral 0 ml 0 ml # Voids 1 1 Exam General: Alert, Oriented X0, NAD Head: Normocephalic, atraumatic Eyes: DAJUAN, EOMI, no scleral Icterus Chest: clear to auscultation B/L, no wheezing rales or rhonchi Heart: Regular rate and rhythm. Normal S1, S2, no murmurs noted Abdomen: soft, non-tender. Bowel sounds are normoactive. No guarding or rebound. Extremities: no cyanosis, clubbing or edema. Bilateral upper extremity arm splints IVs and Medications Medications Reviewed: Medications were reviewed in detail Lab and Diagnostics Result Diagram: 03/10/16 0250 03/10/16 0250 X-Rays, CTs and MRIs Date of Service: 03/09/16 1850 PROCEDURE: X-RAY RIGHT WRIST COMPLETE, MINIMUM THREE VIEWS ([id number]) INDICATIONS: RIGHT WRIST PAIN TECHNIQUE: 4 views of the wrist were acquired. COMPARISON: None. FINDINGS: Bones: There is a comminuted, displaced, intra-articular fracture through the distal radius. Bones are diffusely osteopenic. No other fracture or dislocation. Scaphoid view: The scaphoid is intact. Soft tissues: There is soft tissue swelling and a wrist joint effusion. IMPRESSION: Comminuted, displaced, and intra-articular distal radial fracture with associated joint effusion and soft tissue swelling. Dictated by: Michelle Ibrahim M.D. on 03/09/2016 at 19:20 Approved by: Michelle Ibrahim M.D. on 03/09/2016 at 19:20 --------- Date of Service: 03/09/16 0018 PROCEDURE: X-RAY LEFT WRIST COMPLETE, MINIMUM THREE VIEWS ([id number]) INDICATIONS: 80 year-old female with left wrist deformity after fall. TECHNIQUE: 3 views of the wrist were acquired. COMPARISON: None. FINDINGS: Bones: Comminuted fractures involve the distal radial and ulnar metaphyses, with significant dorsal displacement and angulation of the distal fracture components. An additional minimally displaced fracture involves the ulnar styloid tip. Carpal bones remain normally aligned. No suspicious bony lesions. Scaphoid view: Scaphoid appears intact. Soft tissues: No suspicious soft tissue calcifications. IMPRESSION: 1. Significantly displaced and dorsally angulated comminuted fractures of the distal radial and ulnar metaphyses. 2. Additional minimally displaced ulnar styloid tip avulsion fracture. Dictated by: Rich Virgen M.D. on 03/09/2016 at 7:59 Approved by: Rich Virgen M.D. on 03/09/2016 at 7:59 Assessment & Plan Patient is an 80-year-old female with Alzheimer's dementia, history of CVA, hypertension, and CAD s/p PCI admitted for bilateral wrist fractures. 1. Acute bilateral wrist fractures. Present on admission. Active -X-rays as above -Arms in splints bilaterally -Pain management with acetaminophen. Hydrocodone for breakthrough pain -Also consulted. Plans for outpatient follow-up Chronic conditions: 2. Alzheimer's dementia. Present on admission -Continue home Donepezil 3. CAD s/p PCI. Present on admission. -Hold Plavix -Continue aspirin, atenolol 4. Depression. Present on admission -Continue home citalopram CODE STATUS: Limited intervention Disposition: She lives at assisted living. Pending PT evaluation and recommendations VTE Prophylaxis: SCDs Resuscitation Status: Limited Interventions Limited Interventions: Compressions, Cardioversion/Defibrillation, BiPAP, Medications and IV Fluid Kieran Cazares DO Mar 10, 2016 20:26
[2016-03-11 05:36] VITALS: BP 144/73; PULSE 66; RESP 18; O2SAT 99
[2016-03-11 08:30] VITALS: BP 147/68; PULSE 60; RESP 16; O2SAT 92
--- NOTE | 2016-03-11 11:06 | NUR ---
Case Management: Spoke with sonKieran @ [phone]. Explained OBS brochure via telephone and copy left in pt. room. Sonya Valencia RN
--- NOTE | 2016-03-11 14:04 | PCM.DIMED ---
Discharge Instructions Date of Service Mar 11, 2016 Dates of Hospitalization Mar 09, 2016 at 20:59 Discharge Diagnosis Discharge Diagnosis Bilateral radial fractures Diet Heart Healthy Activity Limited until seen by PCP (nonweightbearing bilateral upper extremities) Call your provider Fever or Chills, Chest pain, Weakness (unilateral) Patient Instructions Follow-up plan Follow-up with Dr. Aviles on monday Follow-up with PCP in: 1 week Kieran Cazares DO Mar 11, 2016 14:04
--- NOTE | 2016-03-11 16:10 | NUR ---
Social Work Discharge Planning Note: Data & Assessment: Insulation Blanket Maker spoke with patient's son, Kieran Perez, to discuss discharge planning. The patient is unable to return to her [facility]. Kieran Perez will visit [facility] and notify the high school social science teacher which facility he wants the patient to discharge to on 03/12/15. Plan: Patient will discharge to private pay SNF. Patient's son will notify high school social science teacher of his choice on 03/12/15. SW will continue to follow. Clara Cartagena LMSW, ACM
--- NOTE | 2016-03-11 16:51 | NUR ---
DISCHARGE P-Patient is medically cleared for discharge but no bed available at SNF. I-SS contacted and Case Management has found bed for tomorrow. E- Family Kieran (son) informed of plan and verbalized understanding. Patient is in advanced stage of dementia, appears to have no pain, changed twice today for incontinence, son in helping feed her x2, and resting quietly in bed.
--- NOTE | 2016-03-11 16:58 | NUR ---
TOOK OVER PATIENT CARE
[2016-03-11 20:05] VITALS: BP 166/0; PULSE 60; O2SAT 95
--- NOTE | 2016-03-11 20:31 | PCM.PNMED ---
Subjective Date of Service Mar 11, 2016 Subjective Patient resting in bed comfortably. She does not appear to have any significant pain. She speaks very little Exam Vital Signs Vital Sign - Last Date Time Temp Pulse Resp B/P Pulse Ox O2 Delivery O2 Flow Rate FiO2 03/11/16 20:05 36.6 60 166/0 95 Room Air 03/11/16 08:30 16 Intake and Output 03/10/16 03/10/16 03/11/16 Cumulative From/Thru 15:00 23:00 07:00 03/09/16 21:35 - 03/11/16 05:35 Intake Total 600 ml 100 ml 700 ml Balance 600 ml 100 ml 700 ml Intake Oral 600 ml 100 ml 700 ml # Voids 3 4 8 # Bowel Movements 0 0 Exam General: Alert, does not really talk much, confused, NAD Head: Normocephalic, atraumatic Eyes: DAJUAN, EOMI, no scleral Icterus Chest: clear to auscultation B/L, no wheezing rales or rhonchi Heart: Regular rate and rhythm. Normal S1, S2, no murmurs noted Abdomen: soft, non-tender. Bowel sounds are normoactive. No guarding or rebound. Extremities: no cyanosis, clubbing or edema. Bilateral arm splints. IVs and Medications Medications Reviewed: Medications were reviewed in detail Lab and Diagnostics Result Diagram: 03/10/16 0250 03/10/16 0250 X-Rays, CTs and MRIs Date of Service: 03/09/16 1850 PROCEDURE: X-RAY RIGHT WRIST COMPLETE, MINIMUM THREE VIEWS ([id number]) INDICATIONS: RIGHT WRIST PAIN TECHNIQUE: 4 views of the wrist were acquired. COMPARISON: None. FINDINGS: Bones: There is a comminuted, displaced, intra-articular fracture through the distal radius. Bones are diffusely osteopenic. No other fracture or dislocation. Scaphoid view: The scaphoid is intact. Soft tissues: There is soft tissue swelling and a wrist joint effusion. IMPRESSION: Comminuted, displaced, and intra-articular distal radial fracture with associated joint effusion and soft tissue swelling. Dictated by: Michelle Ibrahim M.D. on 03/09/2016 at 19:20 Approved by: Michelle Ibrahim M.D. on 03/09/2016 at 19:20 --------- Date of Service: 03/09/16 0018 PROCEDURE: X-RAY LEFT WRIST COMPLETE, MINIMUM THREE VIEWS ([id number]) INDICATIONS: 80 year-old female with left wrist deformity after fall. TECHNIQUE: 3 views of the wrist were acquired. COMPARISON: None. FINDINGS: Bones: Comminuted fractures involve the distal radial and ulnar metaphyses, with significant dorsal displacement and angulation of the distal fracture components. An additional minimally displaced fracture involves the ulnar styloid tip. Carpal bones remain normally aligned. No suspicious bony lesions. Scaphoid view: Scaphoid appears intact. Soft tissues: No suspicious soft tissue calcifications. IMPRESSION: 1. Significantly displaced and dorsally angulated comminuted fractures of the distal radial and ulnar metaphyses. 2. Additional minimally displaced ulnar styloid tip avulsion fracture. Dictated by: Rich Virgen M.D. on 03/09/2016 at 7:59 Approved by: Rich Virgen M.D. on 03/09/2016 at 7:59 Assessment & Plan Patient is an 80-year-old female with Alzheimer's dementia, history of CVA, hypertension, and CAD s/p PCI admitted for bilateral wrist fractures. 1. Acute bilateral wrist fractures. Present on admission. Active -X-rays as above -Arms in splints bilaterally -Pain management with acetaminophen. Hydrocodone for breakthrough pain -Also consulted. Plans for outpatient follow-up Chronic conditions: 2. Alzheimer's dementia. Present on admission -Continue home Donepezil 3. CAD s/p PCI. Present on admission. -Hold Plavix -Continue aspirin, atenolol 4. Depression. Present on admission -Continue home citalopram CODE STATUS: Limited intervention Disposition: PT recommending shelter, she is from assisted living. Likely discharge to shelter tomorrow. VTE Prophylaxis: SCDs Resuscitation Status: Limited Interventions Limited Interventions: Compressions, Cardioversion/Defibrillation, BiPAP, Medications and IV Fluid Kieran Cazares DO Mar 11, 2016 20:31
--- NOTE | 2016-03-11 22:12 | NUR ---
Comfort Pt has both arms in slings/the wrists are coreen wrapped. Fingers warm to touch. Pt indicates she has feeling throughout her visible hands. Given tylenol x 1. Pt refuses arms to be elevated. Will cont to monitor
[2016-03-12 04:12] VITALS: BP 128/58; PULSE 60; RESP 20; O2SAT 95
[2016-03-12 08:53] VITALS: BP 154/67; PULSE 65; RESP 20; O2SAT 95
[2016-03-12 13:19] VITALS: BP 154/72; PULSE 60; RESP 20; O2SAT 95
--- NOTE | 2016-03-12 14:05 | NUR ---
Discharge Patient left floor at 1400 via wheelchair to be driven to [facility] in [place] by son. Discharge packet given to son. Report called to Ness at [facility]. All belongings left with patient.
--- NOTE | 2016-03-12 14:16 | NUR ---
Social Work: Discahcata Data & Assessment: JAROCHO apoke with patient's son, Kieran Perez, and he stated that he chose [facility] as the facility for respite. JAROCHO spoke with the charge nurse, Nemo, at [facility] and she is anticipating the patient's arrival. SW notified Nemo that the patient's son will transport her to the facility. SW notified patient's floor nurse and gave her the patient's packet for transport. SW will continue to follow. Plan: Patient will discharge to [facility] as a respite patient. Patient will transport to [facility] via POV. SW will continue to follow incase a need arise. Clara Cartagena, ADILIA, ACM
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
== END 2016-03-12 14:00 | disposition home or self-care (01) ==
LOC: INTOOBSV 20:59 → MOC 20:59
PROVIDERS: ADMIT Hospitalist; ATTEND Family Medicine
DX: S52.571A Other intraarticular fracture of lower end of right radius, initial encounter for closed fracture (principal); S52.612A Displaced fracture of left ulna styloid process, initial encounter for closed fracture; W18.30XA Fall on same level, unspecified, initial encounter; Y92.009 Unspecified place in unspecified non-institutional (private) residence as the place of occurrence of the external cause; Y93.9 Activity, unspecified; Y99.9 Unspecified external cause status; E78.5 Hyperlipidemia, unspecified; I25.10 Atherosclerotic heart disease of native coronary artery without angina pectoris; F41.9 Anxiety disorder, unspecified; F32.9 Major depressive disorder, single episode, unspecified; I73.9 Peripheral vascular disease, unspecified; F02.80 Dementia in other diseases classified elsewhere, unspecified severity, without behavioral disturbance, psychotic disturbance, mood disturbance, and anxiety; I10 Essential (primary) hypertension; R29.6 Repeated falls; Z79.82 Long term (current) use of aspirin; Z86.73 Personal history of transient ischemic attack (TIA), and cerebral infarction without residual deficits